=== PATIENT | female | born 1935 | race Caucasian/White ===

== ENCOUNTER 2021-11-27 20:40 | Emergency (ER) | payer MEDICARE, SELFPAY ==
[2021-11-27 20:53] VITALS: BP 137/68; PULSE 86; RESP 18; TEMP 36.6; O2SAT 98
--- NOTE | 2021-11-27 21:42 | ED.GENADULT ---
HPI - General Adult General Chief complaint: Fall Stated complaint: Fall, lip lac Time Seen by Provider: 11/27/21 21:33 History of Present Illness HPI narrative: Patient is an 86-year-old female who presents the emergency department with chief complaint of lip laceration. Patient states she was walking on the set of stairs and tripped on the last step. The patient reports that she struck her lip had no loss of consciousness reports there is a small laceration of the mucosal part of her lip. The patient also reports there is a contusion to her left lower extremity. The patient reports full range of motion reports no difficulty walking reports he is unsure of her last tetanus shot. Related Data Allergies Allergy/AdvReac Type Severity Reaction Status Date / Time No Known Allergies Allergy Unknown Unverified 08/16/17 02:47 Review of Systems Review of Systems: A 10 system review of systems was completed on the patient and is negative except for what is stated in the HPI. Nursing and ancillary documentation was reviewed. Exam Narrative: GENERAL: Well-appearing, well-nourished, and in no acute distress. HEAD: Normocephalic, atraumatic. EYES: PERRLA and EOMI. ENT: Nares clear, no rhinorrhea or epistaxis. Mucous membranes moist. There is a 1 cm laceration in the upper lip in the mucosal portion NECK: Supple. CHEST: Clear to auscultation. No respiratory distress. HEART: Regular rate and rhythm. No murmur heard. Normal peripheral pulses. ABDOMEN: Soft, nontender, nondistended, normal active bowel sounds. EXTREMITIES: Normal range of motion. No edema. There is a contusion present in the left lower extremity inferior to the knee SKIN: Warm, dry, no rash. NEURO: No focal deficits. Alert and oriented x3. PSYCH: Normal mood and affect. Course Vital Signs Vital signs: Vital Signs Temperature 36.6 C 11/27/21 20:53 Pulse Rate 86 11/27/21 20:53 Respiratory Rate 18 11/27/21 20:53 Blood Pressure 137/68 11/27/21 20:53 Pulse Oximetry 98 11/27/21 20:53 Temperature 36.6 C 11/27/21 20:53 Pulse Rate 86 11/27/21 20:53 Respiratory Rate 18 11/27/21 20:53 Blood Pressure 137/68 11/27/21 20:53 Pulse Oximetry 98 11/27/21 20:53 Procedures Laceration Laceration 1: Date: 11/27/21 Time: 22:18 Site: lip (upper lip) Size (cm): 1 Description: stellate Depth: simple, single layer Local Anesthetic: lidocaine 1% Amount of anesthesia used (mL): 2 Pre-repair: wound explored and irrigated ====== Skin Level ====== Skin layer closed with: vicryl Size (cm): 4-0 Number of sutures: 2 Technique: simple, interrupted ====== Subcutaneous Layer ====== ====== Muscle Layer ====== ====== Tendon Layer ====== Medical Decision Making Vital Signs Vital Signs: Vital Signs Temperature 36.6 C 11/27/21 20:53 Pulse Rate 86 11/27/21 20:53 Respiratory Rate 18 11/27/21 20:53 Blood Pressure 137/68 11/27/21 20:53 Pulse Oximetry 98 11/27/21 20:53 Temperature 36.6 C 11/27/21 20:53 Pulse Rate 86 11/27/21 20:53 Respiratory Rate 18 11/27/21 20:53 Blood Pressure 137/68 11/27/21 20:53 Pulse Oximetry 98 11/27/21 20:53 Discharge Plan Discharge Clinical Impression: Laceration of lip Qualifiers: Encounter type: initial encounter Qualified Code(s): S01.511A - Laceration without foreign body of lip, initial encounter Contusion of left leg Qualifiers: Encounter type: initial encounter Qualified Code(s): S80.12XA - Contusion of left lower leg, initial encounter Patient Disposition: Home, Self-Care Condition: Stable Instructions: Antibiotic Form, Care For Your Absorbable Stitches (ED), Laceration (ED), Hematoma (ED), Contusion in Adults (ED) Follow-up/Referrals: CHUY,BLANCA Montoya M.D. [Primary Care Provider] - Time of Disposition: 22:19
[2021-11-27] MEDS: LIDOCAINE HCL 1% LOCAL INJ 20 ML VIAL 5 ML INFILTRATE (22:38)
[2021-11-27] MEDS: TETANUS,DIPHTHERIA,AC PERTUSSIS ADULT (0.5 ML) BOOSTRIX IM (22:38)
[2021-11-27 22:56] VITALS: PULSE 84; RESP 18; O2SAT 96
== END 2021-11-27 22:58 | disposition home or self-care (01) ==
PROVIDERS: Emergency Provider Emergency Medicine; PCP Urology
DX: S01.511A Laceration without foreign body of lip, initial encounter (principal); S80.12XA Contusion of left lower leg, initial encounter; Z23 Encounter for immunization; W10.9XXA Fall (on) (from) unspecified stairs and steps, initial encounter
CPT/HCPCS: 12011; 90471; 90715; 99282